=== PATIENT | female | born 1985 ===

== ENCOUNTER 2025-04-11 05:28 | Day surgery (SDC) | payer OTHER ==
[2025-04-04 12:06] VITALS: BP 114/76
[~2025-04-11] VITALS: Ht 154.9 cm; Wt 63.5 kg
[~2025-04-11 05:28] MED LIST: FLUDROCORTISON0.1 MG PO
[2025-04-11] MEDS ORDERED: DEXAMETHASONE SODIUM PHOSPHATE 4 MG/ML VIAL ONE (07:16)
[2025-04-11] MEDS ORDERED: LIDOCAINE HCL 1%/EPINEPHRINE 20ML VIAL IJ ONE (07:35)
[2025-04-11] MEDS ORDERED: TRIAMCINOLONE ACETONIDE 40 MG/ML VIAL ONE (08:15)
[2025-04-11] MEDS ORDERED: MORPHINE SULFATE 4 MG/ML VIAL IV ONE ×2 (09:20→11:40)
== END 2025-04-11 12:40 | disposition home or self-care (01) ==
LOC: CIR.AMB 05:28
PROVIDERS: ATTEND Otolaryngology
DX: J38.2 Nodules of vocal cords (principal); J38.3 Other diseases of vocal cords; R49.0 Dysphonia